=== PATIENT | female | born 1985 | race African-American/Black ===

== ENCOUNTER 2017-12-14 21:04 | Emergency (ER) | payer OTHER ==
[~2017-12-14] VITALS: Ht 157.5 cm; Wt 102.6 kg
[~2017-12-14 21:04] MED LIST: AMOXICILLIN875 MG PO; ASPIR 8181 M1 PO; AUGMENTIN875 MG PO; Augmentin PO; BACTROBAN CREAM15 GM TP; CLEOCIN300 MG PO; CYCLOBENZAPRINE5 MG PO; DELTASONE20 M1 PO; ENDOCET 5-3251 EACH PO; FLEXERIL5 MG PO; HUMALOG100 UNIT/2 SC; HUMULIN N100 UNIT/2 SC; IBUPROFEN800 MG PO; MEDROL DOSEPAK4 MG PO; METRONIDAZOLE500 MG PO; MOTRIN800 MG PO; MYCOPHENOLATE500 MG PO; Motrin PO; NIFEDIPINE ER30 MG PO; NOVOLIN N100 UNITS/ SC; NOVOLIN N100 UNITS/ SQ; NOVOLOG 10100 UNITS/ SC; PERCOCET 5/31 TABLET PO; PREDNISONE10 MG PO; PREDNISONE20 MG PO; PRENATAL TABLE1 EAC3 PO; Percocet 5/325,Endoc PO; ROBITUSSIN AC,T10 ML PO; SPRINTEC1 EACH PO; TAMIFLU75 MG PO; ULTRAM50 MG PO; VITAMIN D-32000 UNI1 PO; X VIATE TP; ZANTAC150 MG PO
[2017-12-14 21:34] LABS: HEMATOCRIT 37.6 % (36.0-46.0); MCH 24.7 PG (29.0-34.0); MCHC 31.9 G/DL (30.0-36.0); MCV 77.4 FL (83-99); PLATELET COUNT 424 K/uL (156-360); RBC DIS.WIDTH-CV 14.7 % (11.8-14.6); RBC DIS.WIDTH-SD 40.9 % (39-53); RED BLOOD COUNT 4.86 M/uL (3.80-5.20); WHITE BLOOD COUNT 7.9 K/uL (4.1-10.2)
[2017-12-14 21:45] LABS: ALBUMIN 4.2 g/dL (3.2-4.8)
[2017-12-14 21:46] LABS: CHLORIDE 103 mEq/L (99-109); SODIUM 137 mEq/L (136-147)
[2017-12-14 21:48] LABS: GLUCOSE 107 mg/dL (70-99); TOTAL PROTEIN 7.8 g/dL (6.4-8.3)
[2017-12-14 21:50] LABS: TOTAL BILIRUBIN 0.4 mg/dL (0.0-1.0)
[2017-12-14 21:50] LABS: APPEARANCE CLEAR ((CLEAR)); BILIRUBIN NEGATIVE; BLOOD NEGATIVE; COLOR STRAW ((YELLOW)); GLUCOSE (STRIP) NEGATIVE; KETONES 5; LEUKOCYTES NEGATIVE; NITRITE NEGATIVE; PROTEIN (STRIP) NEGATIVE; UCUL ADDED? NO; UROBILINOGEN 0.2 MG/DL (0.2-1.0)
[2017-12-14 21:51] LABS: ALKALINE PHOSPHATASE 85 IU/L (3-129)
[2017-12-14 21:52] LABS: CREATININE 0.7 mg/dL (0.6-1.3); GFR ESTIMATE (CALCULATED) > 59 mL/min/
[2017-12-14 21:53] LABS: AST (GOT) 21 IU/L (2-34); UREA NITROGEN (BUN) 11 mg/dL (9-23)
[2017-12-14 21:55] LABS: ALT (GPT) 16 IU/L (3-49)
[2017-12-14 22:01] LABS: QUANTITATIVE HCG < 4.0 MIU/ML
[2017-12-14 22:35] LABS: LIPASE 10 U/L (1.0-51.0)
[2017-12-14] MEDS ORDERED: ZOFRAN ODT8 MG PO (23:38)
[2017-12-14] MEDS ORDERED: BENTYL20 MG PO (23:38)
[2017-12-15 00:05] VITALS: BP 127/74
== END 2017-12-15 00:05 | disposition home or self-care (01) ==
LOC: RME 21:04 → EME 21:04 → RME 12-15 00:05
DX: R10.30 Lower abdominal pain, unspecified (principal); R11.2 Nausea with vomiting, unspecified; J45.909 Unspecified asthma, uncomplicated; B19.20 Unspecified viral hepatitis C without hepatic coma; Z88.1 Allergy status to other antibiotic agents
CPT/HCPCS: 74022; 80053; 81003; 83690; 84702; 85027; 99281; 99285; J0500